=== PATIENT | male | born 1990 | race African-American/Black ===

== ENCOUNTER 2017-03-22 16:48 | Emergency (ER) | payer MEDICAID ==
[~2017-03-22] VITALS: Ht 177.8 cm; Wt 83.9 kg
[2017-03-22] MEDS ORDERED: Tetanus/Diptheria/Pertussis Vaccine 0.5ml Syr IM ONE (17:00)
[2017-03-22 17:14] VITALS: BP 135/79
--- NOTE | 2017-03-22 17:26 | Emergency Room Report ---
History of Present Illness General Chief Complaint: Laceration Source: Patient Present Illness HPI 26-year-old male presents emergency department complaining of laceration to the medial right ankle times one hour. Patient states he was climbing a fence when he accidentally lost his footing and sustained laceration. Patient denies hitting his head or loss of consciousness. Patient denies bone pain, patient denies increased pain with walking. Patient reports bleeding and open wound. Patient does not know when his last tetanus vaccination was. Patient denies taking blood thinning medications. Denies numbness tingling or loss of sensation or gross motor movements of the extremities, incontinence of bowel or bladder. Denies CP, Palpitations, LOC, AMS, dizziness, Changes in Vision, Sensation, paresthesias, or a sudden severe headache. Allergies: Coded Allergies: No Known Allergies (Unverified , 03/22/17) Patient History Past Medical History: see triage record Past Surgical History: none Pertinent Family History: none Reviewed Nursing Documentation: PMH: Agreed, PSxH: Agreed Nursing Documentation-PMH Past Medical History: No History, Except For Hx Asthma: Yes Review of Systems All Other Systems: negative except mentioned in HPI Physical Exam Vital Signs Date Time Temp Pulse Resp B/P Pulse Ox O2 Delivery O2 Flow Rate FiO2 03/22/17 16:54 98.2 55 14 135/79 98 Room Air Sp02 EP Interpretation: reviewed, normal General Appearance: no apparent distress, alert, GCS 15, non-toxic Head: normocephalic, atraumatic Eyes: bilateral eye PERRL, bilateral eye normal inspection ENT: hearing grossly normal, normal pharynx, no angioedema, normal voice Neck: full range of motion, supple/symm/no masses Respiratory: lungs clear, normal breath sounds, speaking full sentences Cardiovascular #1: regular rate, rhythm, no edema, normal capillary refill Musculoskeletal: back normal, gait/station normal, normal range of motion, non- tender, no calf tenderness, other - movement of the calf with calf squeeze. Neurologic: alert, oriented x3, responsive, motor strength/tone normal, sensory intact, speech normal Psychiatric: judgement/insight normal, memory normal, mood/affect normal Skin: normal color, no rash, warm/dry, well hydrated, laceration - medial right ankle laceration approx 3 cm in length, FROM of ankle against resistance , no bony ttp. Procedures Splinting Splinting : Consent: Verbal Location: right ankle Pre-Made Type: air aplint Pre-Proc Neuro Vasc Exam: normal Post-Proc Neuro Vasc Exam: normal Patient Tolerated: Well Complications: None Laceration/Wound Repair Laceration/Wound Repair : Consent: Verbal Wound Location: lower extremity - medical right ankle Wound's Depth, Shape: flap Wound Length (cm): 3 Wound Explored: clean Irrigated w/ Saline (ccs): 1000 Anesthesia: Lidocaine w/ Epi Volume Anesthetic (ccs): 5 Wound Debrided: minimal Wound Repaired With: sutures Suture Size/Type: 5:0 Number of Sutures: 12 Layer Closure?: Yes Deep Layer Suture Size/Type: 4:0 Number Deep Layer Sutures: 4 Sterile Dressing Applied?: Yes Splint Applied?: Yes Type of Splint Applied: air ankle splint Sling Applied?: No Patient Tolerated: Well Complications: None Medical Decision Making PA Attestation Dr. Hatch is my supervising Physician whom patient management has been discussed with. Diagnostic Impression: Primary Impression: Laceration ER Course Pt. presents to the ED c/o laceration to medial right ankle Ddx considered but are not limited to laceration, tendon injury, cellulitis, amputation Vital signs: are WNL, pt. is afebrile H&PE are most consistent with: medial right ankle laceration approx 3 cm in length, FROM of ankle against resistance, no bony ttp. ORDERS: none required at this time, the diagnosis is clinical ED INTERVENTIONS: -Tetanus vaccine was administered as pt. vaccination status was unknown. - The wound was copiously irrigated with normal saline, and explored for foreign body for which no FB was found., no evidence of tendon laceration. - pt. is anesthetized with 1%lidocaine w. epi.- 5cc -4 deep subcutaneous sutures were used to approximate the underlying subcutaneous fat of the open wound using rapid dissolving vycril 4.0 sutures - The wound was approximated and closed using 12 horizontal mattress interrupted 5.0Prolene sutures. -Bacitracin and sterile dressing is applied. Discussed with patient: That we make every effort to approximate the laceration as best as we can so that scarring will be as cosmetically pleasing as possible with our limited cosmetic skill set in the Emergency dept. Regardless of our best efforts there will be scarring after laceration repair. The extent of scarring is unknown at this time. - Air splint to right ankle was applied by RN, pt. remains NVI before and after application. - Pt is provided with crutches DISCHARGE: At this time pt. is stable for d/c to home. Will provide printed patient care instructions, and any necessary prescriptions. Care plan and follow up instructions have been discussed with the patient prior to discharge. Last Vital Signs Date Time Temp Pulse Resp B/P Pulse Ox O2 Delivery O2 Flow Rate FiO2 03/22/17 17:14 98.2 67 14 135/79 98 Room Air Disposition: HOME, SELF-CARE Condition: Stable Scripts Bacitracin/Polymyxin B Sulfate (BACITRACIN-POLYMYXIN OINTMENT) 28.35 Gm Oint...g. 1 APPLIC TP BID, #28.3 GM Prov: Sera Mcdermott 03/22/17 Cephalexin* (KEFLEX*) 500 Mg Capsule 500 MG ORAL EVERY 12 HOURS for 7 Days, #14 CAP 0 Refills Prov: Sera Mcdermott 03/22/17 Patient Instructions: Laceration Care, Adult Additional Instructions: Take medications as directed. Follow up with PCP in 3-5 days Return sooner to ED if new symptoms occur, or current symptoms become worse. - Please note that this Emergency Department Report was dictated using [employer]POW[employer]et assistant technology software, occasionally this can lead to erroneous entry secondary to interpretation by the dictation equipment. Sera Mcdermott Mar 22, 2017 17:26
[2017-03-22] MEDS ORDERED: Bacitracin Oint UD TOPIC ONE ×2 (18:37→18:45)
[2017-03-22] MEDS ORDERED: CEPHALEXIN500 MG ORAL (18:39)
[2017-03-22] MEDS ORDERED: BACITRACIN-P28.35 GM TP (18:39)
[2017-03-22 19:13] VITALS: BP 132/75
[2017-03-22 19:16] VITALS: BP 132/75
== END 2017-03-22 19:10 | disposition home or self-care (01) ==
LOC: EMR 17:34
DX: S91.011A Laceration without foreign body, right ankle, initial encounter (principal); Z23 Encounter for immunization; W45.8XXA Other foreign body or object entering through skin, initial encounter; Y93.9 Activity, unspecified; Y92.9 Unspecified place or not applicable
CPT/HCPCS: 12002; 29540; 90471; 90715; 96372; 99284; Z7502

== ENCOUNTER 2017-04-02 15:55 | Emergency (ER) | payer MEDICAID ==
[~2017-04-02] VITALS: Ht 177.8 cm; Wt 83.9 kg
[~2017-04-02 15:55] MED LIST: BACITRACIN-P28.35 GM TP; CEPHALEXIN500 MG ORAL
--- NOTE | 2017-04-02 16:52 | Emergency Room Report ---
History of Present Illness General Chief Complaint: Wound Recheck/Suture Removal Source: Patient Present Illness HPI Patient is a 26-year-old male who presented for wound check. Patient was noted to have the no pain wound. He was noted to have some drainage. Not having any fever. He denied any pain. The patient stated that he had taken the day off of work to come to the hospital. Allergies: Coded Allergies: No Known Allergies (Unverified , 03/22/17) Patient History Past Medical History: see triage record Reviewed Nursing Documentation: PMH: Agreed, PSxH: Agreed Nursing Documentation-PMH Hx Asthma: Yes Review of Systems All Other Systems: negative except mentioned in HPI Physical Exam Vital Signs Date Time Temp Pulse Resp B/P Pulse Ox O2 Delivery O2 Flow Rate FiO2 04/02/17 16:21 97.7 61 15 140/78 98 Room Air General Appearance: well appearing, no apparent distress, alert, GCS 15 Head: normocephalic, atraumatic ENT: hearing grossly normal, normal voice Neck: full range of motion, supple Respiratory: no respiratory distress, speaking full sentences Musculoskeletal: normal inspection, back normal, no calf tenderness Neurologic: normal inspection, alert, oriented x3, responsive, normal gait Psychiatric: mood/affect normal Skin: no rash, other - healing wound with white discoloration. slight transudate Medical Decision Making Diagnostic Impression: Primary Impression: Encounter for wound re-check ER Course Patient presented for wound check. Differential diagnosis included was not limited to infected wound, nonhealed wound, neuroma, healed wound. . the patient presented a nonhealed wound. Patient was advised to keep skin dry or apply antibiotic ointment. Suture removal in 4 days Last Vital Signs Date Time Temp Pulse Resp B/P Pulse Ox O2 Delivery O2 Flow Rate FiO2 04/02/17 16:21 97.7 61 15 140/78 98 Room Air Disposition: HOME, SELF-CARE Condition: Stable Patient Instructions: Wound Check Hong Hatch Apr 02, 2017 16:52
[2017-04-02 16:58] VITALS: BP 140/78
[2017-04-02] MEDS ORDERED: Bacitracin Oint UD TOPIC ONE (17:00)
[2017-04-02 17:01] VITALS: BP 140/78
== END 2017-04-02 17:01 | disposition home or self-care (01) ==
LOC: EMR 16:58
DX: S91.311D Laceration without foreign body, right foot, subsequent encounter (principal); J45.909 Unspecified asthma, uncomplicated
CPT/HCPCS: 99283